=== PATIENT | female | born 1950 | race Asian ===

== ENCOUNTER → 2018-03-16 | Outpatient (CLI) | payer BC ==
[~2018-03-16] MED LIST: ASCO-316 PO
[2018-03-16 08:50] LABS: BASOPHILS % 0.5 % (0.0-2.0); EOSINOPHILS % 2.4 % (0.0-5.0); HEMATOCRIT. 39.7 % (36.0-48.0); HEMOGLOBIN. 13.2 g/dL (12.0-16.0); LYMPHOCYTES % 40.4 % (20.0-50.0); MEAN CORPUSCULAR HEMOGLOBIN 29.3 pg (28.0-32.0); MEAN CORPUSCULAR VOLUME 88.4 fL (81.0-99.0); MEAN PLATELET VOLUME 10.5 fl (7.4-10.4); MONOCYTES % 6.4 % (2.0-8.0); NEUTROPHILS % 50.3 % (40.0-76.0); PLATELET 136 x1000/uL (130-400); RED BLOOD CELL COUNT 4.49 mill/uL (4.2-5.4); RED CELL DISTRIBUTION WIDTH 12.8 % (11.6-14.6)
[2018-03-16 08:58] LABS: INR 0.9; PARTIAL THROMBOPLASTIN TIME 28.5 sec (23.4-31.0); PROTHROMBIN TIME 9.4 sec (9.1-11.1)
[2018-03-16 09:18] LABS: CHLORIDE 108 mEq/L (98-107)
[2018-03-16 09:26] LABS: LDL CHOLESTEROL 122 mg/dL (5-100)
[2018-03-16 09:27] LABS: HDL CHOLESTEROL 53 mg/dL (40-59); T4 FREE 1.18 ng/dL (0.76-1.46)
[2018-03-16 10:45] LABS: CLARITY URINE CLOUDY (CLEAR); COLOR URINE YELLOW (YELLOW); KETONES URINE NEGATIVE (NEGATIVE); LEUKOCYTE ESTERASE URINE 1+ (NEGATIVE); NITRITE URINE NEGATIVE (NEGATIVE); OCCULT BLOOD URINE 1+ (NEGATIVE); PROTEIN URINE NEGATIVE (NEGATIVE); SPECIFIC GRAVITY URINE 1.028 (1.005-1.030); UROBILINOGEN URINE 0.2 E.U./dL (0.2-1.0)
== END | disposition home or self-care (01) ==
LOC: RAD 08:14
PROVIDERS: ATTEND Internal Medicine Pulmonary Disease
DX: Z01.818 Encounter for other preprocedural examination (principal); R94.31 Abnormal electrocardiogram [ECG] [EKG]
CPT/HCPCS: 36415; 71046; 80061; 83036; 83615; 84439; 93005

== ENCOUNTER 2018-03-21 06:07 | Day surgery (SDC) | payer BC ==
[~2018-03-21] VITALS: Ht 152.4 cm; Wt 50.8 kg
[2018-03-21] MEDS ORDERED: TROPICAMIDE 1% OPHTH DROPS 15ML LEFTEYE ONE (06:30)
[2018-03-21] MEDS ORDERED: PHENYLEPHRINE HCL 10% OPHTH DROPS 5ML LEFTEYE ONE (06:30)
[2018-03-21] MEDS ORDERED: CYCLOPENTOLATE HCL 1% OPHTH DROPS 2ML LEFTEYE ONE (06:30)
[2018-03-21] MEDS ORDERED: LACTATED RINGERS 1,000 ML IV SCH (06:45)
[2018-03-21] MEDS ORDERED: DIPHENHYDRAMINE 50MG/ML VIAL ONE (06:49)
[2018-03-21] MEDS ORDERED: MIDAZOLAM HCL 2 MG/2 ML VIAL ONE (06:49)
[2018-03-21] MEDS ORDERED: FENTANYL CITRATE/PF 50MCG/ML 2ML VIAL ONE (06:49)
[2018-03-21] MEDS ORDERED: LIDOCAINE HCL/PF 1% 10 MG/ML 5ML VIAL ONE (06:52)
[2018-03-21] MEDS ORDERED: PROPOFOL 200MG/20ML VIAL IV ONE (06:52)
[2018-03-21] MEDS ORDERED: BALANCED SALT IRRIG SOLN COMB1 500ML OP ONE (07:00)
[2018-03-21] MEDS ORDERED: HYALURONATE SODIUM 14 MG/ML 0.85ML SYRINGE IO ONE (07:02)
[2018-03-21] MEDS ORDERED: HYDRALAZINE 20MG/ML VIAL ONE (08:33)
[2018-03-21] MEDS ORDERED: SODIUM CHLORIDE 0.9% 10ML VIAL ONE (08:33)
[2018-03-21] MEDS ORDERED: HYDROMORPHONE HCL/PF 2MG/ML CPJ IV PRN (09:30)
[2018-03-21] MEDS ORDERED: BALANCED SALT IRRIG SOLN 15ML ONE (16:08)
[2018-03-21] MEDS ORDERED: BUPIVACAINE HCL/PF 0.75% (7.5MG/ML) 10ML ONE (16:08)
[2018-03-21] MEDS ORDERED: PREDNISOLONE ACETATE 1% OPHTH DROPS 1ML ONE (16:08)
[2018-03-21] MEDS ORDERED: LIDOCAINE HCL 2%/EPINEPHRINE 1:100,000 20 ML VIAL INFIL ONE (16:08)
[2018-03-21] MEDS ORDERED: LIDOCAINE HCL/PF 2% 20 MG/ML 10ML VIAL ONE (16:08)
[2018-03-21] MEDS ORDERED: NEO/POLYMYX B SULF/DEXAMETH OPHTH OINT 3.5GM ONE (16:08)
[2018-03-21] MEDS ORDERED: CIPROFLOXACIN 0.3% OPHTH SOLN 2.5ML ONE (16:08)
[2018-03-21] MEDS ORDERED: TROPICAMIDE 1% OPHTH DROPS 15ML ONE (16:08)
[2018-03-21] MEDS ORDERED: CYCLOPENTOLATE HCL 1% OPHTH DROPS 2ML ONE (16:08)
[2018-03-21] MEDS ORDERED: PHENYLEPHRINE HCL 10% OPHTH DROPS 5ML ONE (16:08)
[2018-03-21] MEDS ORDERED: ACETYLCHOLINE CHLORIDE INTRAOCULAR SOLUTION 1:100 ELECTROLYTE DILUENT IO ONE (16:08)
== END 2018-03-21 10:35 | disposition home or self-care (01) ==
LOC: OR 06:07
PROVIDERS: ATTEND Ophthalmology
DX: H25.89 Other age-related cataract (principal); E78.1 Pure hyperglyceridemia; I10 Essential (primary) hypertension; Z87.891 Personal history of nicotine dependence; Z98.890 Other specified postprocedural states; F41.9 Anxiety disorder, unspecified
CPT/HCPCS: 66984; J0360; J1200; J2250; J3010; J3490; V2632; J2704

== ENCOUNTER → 2019-03-22 | Outpatient (CLI) | payer BC | END | disposition home or self-care (01) | LOC: RAD 12:05 | PROVIDERS: ATTEND Internal Medicine Pulmonary Disease | DX: M19.011 Primary osteoarthritis, right shoulder (principal) | CPT/HCPCS: 73030 ==

== ENCOUNTER → 2019-04-25 | Outpatient (CLI) | payer BC | END | disposition home or self-care (01) | LOC: MRI 07:38 | PROVIDERS: ATTEND Internal Medicine Pulmonary Disease | DX: M75.101 Unspecified rotator cuff tear or rupture of right shoulder, not specified as traumatic (principal); M77.9 Enthesopathy, unspecified | CPT/HCPCS: 73221 ==

== ENCOUNTER → 2020-12-18 | Outpatient (CLI) | payer BC | END | disposition home or self-care (01) | LOC: RAD 06:18 | PROVIDERS: ATTEND Podiatrist Foot & Ankle Surgery | DX: M19.072 Primary osteoarthritis, left ankle and foot (principal); M20.12 Hallux valgus (acquired), left foot; M20.11 Hallux valgus (acquired), right foot; M20.5X2 Other deformities of toe(s) (acquired), left foot; M20.41 Other hammer toe(s) (acquired), right foot; M85.871 Other specified disorders of bone density and structure, right ankle and foot; M77.51 Other enthesopathy of right foot and ankle | CPT/HCPCS: 73630 ==

== ENCOUNTER → 2021-05-19 | Outpatient (CLI) | payer BC ==
[2021-05-19 11:58] LABS: BASOPHILS % 0.5 % (0.0-2.0); EOSINOPHILS % 2.6 % (0.0-5.0); HEMATOCRIT. 39.6 % (36.0-48.0); HEMOGLOBIN. 13.6 g/dL (12.0-16.0); LYMPHOCYTES % 30.4 % (20.0-50.0); MEAN CORPUSCULAR HEMOGLOBIN 29.7 pg (28.0-32.0); MEAN CORPUSCULAR VOLUME 86.8 fL (81.0-99.0); MEAN PLATELET VOLUME 9.4 fl (7.4-10.4); MONOCYTES % 5.2 % (2.0-8.0); NEUTROPHILS % 61.3 % (40.0-76.0); PLATELET 130 x1000/uL (130-400); RED BLOOD CELL COUNT 4.56 mill/uL (4.2-5.4); RED CELL DISTRIBUTION WIDTH 13.4 % (11.6-14.6)
[2021-05-19 12:05] LABS: CHLORIDE 112 mEq/L (98-107)
[2021-05-19 12:15] LABS: LDL CHOLESTEROL 110 mg/dL (5-100)
[2021-05-19 12:16] LABS: HDL CHOLESTEROL 57 mg/dL (40-59)
== END | disposition home or self-care (01) ==
LOC: LAB 11:05
PROVIDERS: ATTEND Internal Medicine Pulmonary Disease
DX: R73.9 Hyperglycemia, unspecified (principal)
CPT/HCPCS: 36415; 80053; 80061; 83036; 85025

== ENCOUNTER → 2022-04-02 | Outpatient (CLI) | payer BC ==
[2022-04-02 10:58] LABS: BASOPHILS % 0.6 % (0.0-2.0); EOSINOPHILS % 2.3 % (0.0-5.0); HEMATOCRIT. 39.1 % (36.0-48.0); HEMOGLOBIN. 13.1 g/dL (12.0-16.0); LYMPHOCYTES % 28.5 % (20.0-50.0); MEAN CORPUSCULAR HEMOGLOBIN 29.3 pg (28.0-32.0); MEAN CORPUSCULAR VOLUME 87.2 fL (81.0-99.0); MEAN PLATELET VOLUME 9.7 fl (7.4-10.4); MONOCYTES % 6.2 % (2.0-8.0); NEUTROPHILS % 62.4 % (40.0-76.0); PLATELET 129 x1000/uL (130-400); RED BLOOD CELL COUNT 4.48 mill/uL (4.2-5.4); RED CELL DISTRIBUTION WIDTH 13.1 % (11.6-14.6)
[2022-04-02 11:00] LABS: INR 0.9; PARTIAL THROMBOPLASTIN TIME 28.5 sec (23.4-31.0); PROTHROMBIN TIME 10.1 sec (9.6-11.0)
[2022-04-02 11:03] LABS: CHLORIDE 106 mEq/L (98-107)
[2022-04-02 11:18] LABS: HDL CHOLESTEROL 65 mg/dL (40-59); LDL CHOLESTEROL 138 mg/dL (5-100); T4 FREE 1.23 ng/dL (0.76-1.46)
[2022-04-02 11:23] LABS: CLARITY URINE CLEAR (CLEAR); COLOR URINE YELLOW (YELLOW); KETONES URINE NEGATIVE (NEGATIVE); LEUKOCYTE ESTERASE URINE NEGATIVE (NEGATIVE); NITRITE URINE NEGATIVE (NEGATIVE); OCCULT BLOOD URINE TRACE (NEGATIVE); PROTEIN URINE NEGATIVE (NEGATIVE); SPECIFIC GRAVITY URINE 1.004 (1.005-1.030); UROBILINOGEN URINE 0.2 E.U./dL (0.2-1.0)
== END | disposition home or self-care (01) ==
LOC: LAB 09:11
PROVIDERS: ATTEND Internal Medicine Endocrinology, Diabetes & Metabolism
DX: M19.012 Primary osteoarthritis, left shoulder (principal); M19.011 Primary osteoarthritis, right shoulder; M85.812 Other specified disorders of bone density and structure, left shoulder; M85.811 Other specified disorders of bone density and structure, right shoulder; M47.814 Spondylosis without myelopathy or radiculopathy, thoracic region; J98.11 Atelectasis; M81.0 Age-related osteoporosis without current pathological fracture; I10 Essential (primary) hypertension; E55.9 Vitamin D deficiency, unspecified; D68.9 Coagulation defect, unspecified; R73.9 Hyperglycemia, unspecified
CPT/HCPCS: 36415; 71046; 73030; 80053; 80061; 81003; 83036; 84436; 84439; 84443; 85025; 87077

== ENCOUNTER → 2022-04-06 | Outpatient (CLI) | payer BC | END | disposition home or self-care (01) | LOC: RAD 06:19 | PROVIDERS: ATTEND Internal Medicine Endocrinology, Diabetes & Metabolism | DX: M81.0 Age-related osteoporosis without current pathological fracture (principal); I10 Essential (primary) hypertension | CPT/HCPCS: 77080 ==

== ENCOUNTER → 2022-06-03 | Outpatient (CLI) | payer BC | END | disposition home or self-care (01) | LOC: MRI 07:06 | PROVIDERS: ATTEND Internal Medicine Endocrinology, Diabetes & Metabolism | DX: M75.112 Incomplete rotator cuff tear or rupture of left shoulder, not specified as traumatic (principal); M75.101 Unspecified rotator cuff tear or rupture of right shoulder, not specified as traumatic; M75.102 Unspecified rotator cuff tear or rupture of left shoulder, not specified as traumatic; M19.012 Primary osteoarthritis, left shoulder; M19.011 Primary osteoarthritis, right shoulder; M77.8 Other enthesopathies, not elsewhere classified; M25.412 Effusion, left shoulder; N63.20 Unspecified lump in the left breast, unspecified quadrant; N63.10 Unspecified lump in the right breast, unspecified quadrant; Z98.82 Breast implant status | CPT/HCPCS: 73221; 76642 ==

== ENCOUNTER → 2022-08-26 | Outpatient (CLI) | payer BC ==
[2022-08-26 11:00] LABS: BASOPHILS % 0.7 % (0.0-2.0); EOSINOPHILS % 1.1 % (0.0-5.0); HEMATOCRIT. 40.4 % (36.0-48.0); HEMOGLOBIN. 13.7 g/dL (12.0-16.0); LYMPHOCYTES % 19.4 % (20.0-50.0); MEAN CORPUSCULAR VOLUME 91.8 fL (81.0-99.0); MEAN PLATELET VOLUME 8.8 fl (7.4-10.4); MONOCYTES % 4.8 % (2.0-8.0); PLATELET 179 x1000/uL (130-400)
[2022-08-26 11:08] LABS: CHLORIDE 106 mEq/L (98-107)
[2022-08-26 11:17] LABS: HDL CHOLESTEROL 79 mg/dL (40-59); LDL CHOLESTEROL 145 mg/dL (5-100); PHOSPHORUS 3.5 mg/dL (2.5-4.9)
== END | disposition home or self-care (01) ==
LOC: LAB 09:24
PROVIDERS: ATTEND Internal Medicine Endocrinology, Diabetes & Metabolism
DX: I10 Essential (primary) hypertension (principal); E55.9 Vitamin D deficiency, unspecified; E78.5 Hyperlipidemia, unspecified; M85.80 Other specified disorders of bone density and structure, unspecified site
CPT/HCPCS: 36415; 80053; 80061; 82306; 83735; 83970; 84100; 85025

== ENCOUNTER 2022-11-05 18:16 | Emergency (ER) | payer BC ==
[~2022-11-05] VITALS: Ht 152.4 cm; Wt 48.0 kg
[2022-11-05 18:39] VITALS: BP 127/74; PULSE 74; RESP 16; TEMP 98.6; O2SAT 100
== END 2022-11-05 21:07 | disposition left against medical advice (07) ==
LOC: ER 18:16
DX: Z53.21 Procedure and treatment not carried out due to patient leaving prior to being seen by health care provider (principal)
CPT/HCPCS: 99281

== ENCOUNTER → 2022-11-11 | Outpatient (CLI) | payer BC ==
[2022-11-11 09:34] LABS: CLARITY URINE CLEAR (CLEAR); COLOR URINE YELLOW (YELLOW); GLUCOSE URINE NEGATIVE (NEGATIVE); KETONES URINE NEGATIVE (NEGATIVE); LEUKOCYTE ESTERASE URINE NEGATIVE (NEGATIVE); NITRITE URINE NEGATIVE (NEGATIVE); OCCULT BLOOD URINE 1+ (NEGATIVE); PROTEIN URINE NEGATIVE (NEGATIVE); SPECIFIC GRAVITY URINE 1.014 (1.005-1.030); UROBILINOGEN URINE 0.2 E.U./dL (0.2-1.0)
[2022-11-11 10:03] LABS: SQUAMOUS EPITHELIAL CELL URINE FEW /lpf (RARE/1+)
[2022-11-11 10:11] LABS: RBC URINE 0-2 /hpf (0-2); WBC URINE 0-2 /hpf (0-2)
[2022-11-11 10:12] LABS: BACTERIA URINE NONE SEEN
== END | disposition home or self-care (01) ==
LOC: LAB 08:22
PROVIDERS: ATTEND Internal Medicine Endocrinology, Diabetes & Metabolism
DX: N39.0 Urinary tract infection, site not specified (principal)
CPT/HCPCS: 81003

== ENCOUNTER → 2023-01-31 | Outpatient (CLI) | payer BC ==
[2023-01-31 08:39] LABS: BASOPHILS % 0.7 % (0.0-2.0); EOSINOPHILS % 2.3 % (0.0-5.0); HEMATOCRIT. 37.4 % (36.0-48.0); HEMOGLOBIN. 12.2 g/dL (12.0-16.0); MEAN CORPUSCULAR HEMOGLOBIN 29.7 pg (28.0-32.0); MEAN CORPUSCULAR HGB CONC 32.7 g/dL (31.0-37.0); MEAN CORPUSCULAR VOLUME 90.9 fL (81.0-99.0); MEAN PLATELET VOLUME 9.9 fl (7.4-10.4); MONOCYTES % 5.4 % (2.0-8.0); NEUTROPHILS % 64.6 % (40.0-76.0); PLATELET 133 x1000/uL (130-400); RED BLOOD CELL COUNT 4.12 mill/uL (4.2-5.4); RED CELL DISTRIBUTION WIDTH 13.1 % (11.6-14.6); WHITE BLOOD COUNT 5.5 x1000/uL (4.5-11.0)
[2023-01-31 10:38] LABS: ALANINE AMINOTRANSFERASE 15 IU/L (10-49); ALBUMIN 4.1 g/dL (3.2-4.8); ASPARTATE AMINOTRANSFERASE 24 IU/L (<34); BILIRUBIN TOTAL 0.8 mg/dL (0.1-1.0); CALCIUM 8.8 mg/dL (8.7-10.4); CARBON DIOXIDE 28 mEq/L (21-32); CHLORIDE 107 mEq/L (98-107); CHOLESTEROL 174 mg/dL (<200); CREATININE 0.7 mg/dL (0.6-1.0); GAMMA GLUTAMYL TRANSPEPTIDASE 57 IU/L (<38); GLUCOSE 103 mg/dL (70-105); HDL CHOLESTEROL 57 mg/dL (>65); LDL CHOLESTEROL 124 mg/dL (5-100); POTASSIUM 3.4 mEq/L (3.5-5.1); PROTEIN TOTAL 6.4 g/dL (6.0-8.3); SODIUM 140 mEq/L (136-145); T4 FREE 1.23 ng/dL (0.89-1.76); THYROID STIMULATING HORMONE 2.48 uIU/mL (0.55-4.78); TRIGLYCERIDE 186 mg/dL (0-150); UREA NITROGEN BLOOD 15 mg/dL (9-23)
[2023-01-31 11:57] LABS: HEPATITIS B SURFACE AB 566.4 mIU/mL (<10); HEPATITIS C AB NON REACTIVE (Neg) (Negative)
[2023-02-01 09:08] LABS: HBSAG SCREEN Negative (Negative); HEPATITIS A ANTIBODY TOTAL Positive (Negative)
== END | disposition home or self-care (01) ==
LOC: LAB 08:11
PROVIDERS: ATTEND Internal Medicine Gastroenterology
DX: Z79.899 Other long term (current) drug therapy (principal)
CPT/HCPCS: 36415; 80053; 80061; 82977; 83036; 84439; 84443; 85025; 86705; 86706; 86708; 87340

== ENCOUNTER → 2023-09-28 | Outpatient (CLI) | payer BC ==
[2023-09-28 08:58] LABS: BASOPHILS % 0.8 % (0.0-2.0); EOSINOPHILS % 3.2 % (0.0-5.0); HEMOGLOBIN. 12.9 g/dL (12.0-16.0); LYMPHOCYTES % 40.3 % (20.0-50.0); MEAN CORPUSCULAR HEMOGLOBIN 29.7 pg (28.0-32.0); MEAN CORPUSCULAR VOLUME 89.9 fL (81.0-99.0); MONOCYTES % 6.6 % (2.0-8.0); NEUTROPHILS % 49.1 % (40.0-76.0); PLATELET 129 x1000/uL (130-400); RED BLOOD CELL COUNT 4.34 mill/uL (4.2-5.4); RED CELL DISTRIBUTION WIDTH 13.9 % (11.6-14.6); WHITE BLOOD COUNT 4.6 x1000/uL (4.5-11.0)
[2023-09-28 09:09] LABS: T4 FREE 1.42 ng/dL (0.89-1.76)
[2023-09-28 09:10] LABS: THYROID STIMULATING HORMONE 2.39 uIU/mL (0.55-4.78)
[2023-09-28 09:16] LABS: ALANINE AMINOTRANSFERASE 8 IU/L (10-49); ASPARTATE AMINOTRANSFERASE 20 IU/L (<34); CALCIUM 8.9 mg/dL (8.7-10.4); CARBON DIOXIDE 30 mEq/L (21-32); CHLORIDE 105 mEq/L (98-107); POTASSIUM 3.8 mEq/L (3.5-5.1); SODIUM 141 mEq/L (136-145)
[2023-09-28 09:18] LABS: CREATININE 0.8 mg/dL (0.6-1.0); GLUCOSE 89 mg/dL (70-105)
[2023-09-28 09:19] LABS: ALBUMIN 4.1 g/dL (3.2-4.8)
[2023-09-28 09:20] LABS: CHOLESTEROL 164 mg/dL (<200)
[2023-09-28 09:21] LABS: TRIGLYCERIDE 137 mg/dL (0-150)
[2023-09-28 09:22] LABS: LDL CHOLESTEROL 102 mg/dL (5-100); UREA NITROGEN BLOOD 11 mg/dL (9-23)
[2023-09-28 09:23] LABS: BILIRUBIN TOTAL 0.7 mg/dL (0.1-1.0); HDL CHOLESTEROL 51 mg/dL (>65); PHOSPHORUS 4.1 mg/dL (2.5-4.9); PROTEIN TOTAL 6.4 g/dL (6.0-8.3)
== END | disposition home or self-care (01) ==
LOC: LAB 06:17
PROVIDERS: ATTEND Internal Medicine Endocrinology, Diabetes & Metabolism
DX: I10 Essential (primary) hypertension (principal); E11.9 Type 2 diabetes mellitus without complications; E78.5 Hyperlipidemia, unspecified; M85.80 Other specified disorders of bone density and structure, unspecified site
CPT/HCPCS: 36415; 80053; 80061; 82306; 83036; 83970; 84100; 84439; 84443; 85025

== ENCOUNTER → 2023-09-28 | Outpatient (CLI) | payer BC | END | disposition home or self-care (01) | LOC: MRI 06:08 | DX: S46.001A Unspecified injury of muscle(s) and tendon(s) of the rotator cuff of right shoulder, initial encounter (principal); M19.012 Primary osteoarthritis, left shoulder; X58.XXXA Exposure to other specified factors, initial encounter; Y93.89 Activity, other specified; Y92.89 Other specified places as the place of occurrence of the external cause; Y99.8 Other external cause status | CPT/HCPCS: 73221 ==

== ENCOUNTER → 2023-10-11 | Outpatient (CLI) | payer BC | END | disposition home or self-care (01) | LOC: US 07:48 | PROVIDERS: ATTEND Internal Medicine Endocrinology, Diabetes & Metabolism | DX: Z98.82 Breast implant status (principal) | CPT/HCPCS: 76642 ==